=== PATIENT | male | born 1980 | race Two or more races ===

== ENCOUNTER 2021-04-08 15:19 | Emergency (ER) | payer OTHER ==
[~2021-04-08] VITALS: Ht 185.4 cm; Wt 129.3 kg
[2021-04-08] MEDS ORDERED: INTESTINEX680 M2 PO (20:16)
[2021-04-08] MEDS ORDERED: PROTONIX20 MG PO (20:16)
[2021-04-08] MEDS ORDERED: PEPCID AC20 MG PO (20:16)
[2021-04-08] MEDS ORDERED: CIPROFLOXACIN500 MG PO (20:16)
[2021-04-08] MEDS ORDERED: METRONIDAZOLE500 MG PO (20:16)
[2021-05-08] MEDS ORDERED: ACETAMINOPHEN650 M2 (10:22)
== END 2021-04-08 20:36 | disposition home or self-care (01) ==
LOC: ER 15:19
DX: N20.0 Calculus of kidney (principal)